=== PATIENT | male | born 1990 | race Two or more races ===

== ENCOUNTER → 2022-06-15 | Emergency (ER) | payer MEDICAID, OTHER ==
[~2022-06-15] VITALS: Ht 182.9 cm; Wt 122.0 kg
[2022-06-15 20:07] VITALS: BP 143/95
== END | disposition left against medical advice (07) ==
LOC: ER 19:28 → EDBD 19:28
DX: S50.811A Abrasion of right forearm, initial encounter (principal); Z53.21 Procedure and treatment not carried out due to patient leaving prior to being seen by health care provider; V49.69XA Unspecified car occupant injured in collision with other motor vehicles in traffic accident, initial encounter; Y93.89 Activity, other specified; Y92.89 Other specified places as the place of occurrence of the external cause; Y99.8 Other external cause status